=== PATIENT | female | born 1950 | race Caucasian/White ===

== ENCOUNTER 2018-10-21 14:26 | Outpatient (CLI) | payer OTHER ==
[~2018-10-21 14:26] MED LIST: ALBU8.5H8 INH; LEVO500T20 PO; PRED20TA PO
== END 2018-10-21 21:11 | disposition home or self-care (01) ==
LOC: SUS 14:26
PROVIDERS: ATTEND Family Medicine
DX: E04.1 Nontoxic single thyroid nodule (principal)
CPT/HCPCS: 76536-TC

== ENCOUNTER 2018-11-04 08:50 | Outpatient (CLI) | payer OTHER ==
[2018-11-04] MEDS ORDERED: IOHEXOL 100 ML IV ONE (09:35)
== END 2018-11-04 21:31 | disposition home or self-care (01) ==
LOC: SCT 08:50
PROVIDERS: ATTEND Family Medicine
DX: C91.10 Chronic lymphocytic leukemia of B-cell type not having achieved remission (principal)
CPT/HCPCS: 70491; Q9967

== ENCOUNTER 2021-10-22 14:48 | Emergency (ER) | payer OTHER, MEDICARE, SELFPAY ==
[~2021-10-22] VITALS: Ht 157.5 cm; Wt 63.5 kg
[2021-10-22 15:00] VITALS: BP_SYST 142
--- NOTE | 2021-10-22 15:00 | NUR ---
Patient to ER bed 3 to gown for evaluation. Side rails up. Assumed care.
--- NOTE | 2021-10-22 15:00 | NUR ---
pt. bib BLS with flu symptoms X 3 days, concerned because has hx. of leukemia and pneumonia and today began hearing wheezes, audible wheezes on expiration when auscultated lung sounds
--- NOTE | 2021-10-22 15:18 | NUR ---
lab at bedside for blood draw
--- NOTE | 2021-10-22 15:21 | NUR ---
portable chest xray done
--- NOTE | 2021-10-22 15:31 | NUR ---
ER at bedside examining patient.
[2021-10-22 15:40] LABS: BASOPHILS % (AUTO) 0.4 % (0.0-2.0); EOSINOPHILS % (AUTO) 0.7 % (0.0-4.0); HEMATOCRIT 35.6 % (36-48); HEMOGLOBIN 11.9 g/dL (12.0-16.0); LYMPHOCYTES # (AUTO) 1.9 K/uL (1.0-5.5); LYMPHOCYTES % (AUTO) 50.1 % (20.5-51.5); MEAN CORPUSCULAR HEMOGLOBIN 32 pg (27-31); MEAN CORPUSCULAR HGB CONC 34 % (32-36); MEAN CORPUSCULAR VOLUME 95 fL (79.0-98.0); MONOCYTES # (AUTO) 0.2 K/uL (0.0-1.0); MONOCYTES % (AUTO) 5.3 % (1.7-9.3); NEUTROPHILS # (AUTO) 1.7 K/uL (1.8-7.7); NEUTROPHILS % (AUTO) 43.5 % (40.0-70.0); PLATELET COUNT (AUTO) 90 K/uL (130-430); RED BLOOD CELL COUNT(AUTO) 3.75 MIL/uL (4.2-6.2); RED CELL DISTRIBUTION WIDTH 13.7 % (9.0-15.0); WHITE BLOOD COUNT (AUTO) 3.9 K/uL (4.8-10.8)
[2021-10-22 15:47] LABS: ANION GAP 8 (5-15); CALCIUM 8.2 mg/dL (8.4-11.0); CHLORIDE 105 mmol/L (98-107); CREATININE 0.71 mg/dL (0.55-1.30); GLUCOSE 97 mg/dL (70-99); POTASSIUM 4.6 mmol/L (3.5-5.1); SODIUM SERUM 142 mmol/L (136-145); UREA NITROGEN, BLOOD 8 mg/dL (8-21)
[2021-10-22 15:57] LABS: ALANINE AMINOTRANSFERASE 22 U/L (12-78); ALBUMIN 3.6 g/dL (3.4-4.8); ASPARTATE AMINOTRANSFERASE 18 U/L (10-37); TOTAL BILIRUBIN 0.4 mg/dL (0.0-1.0)
[2021-10-22] MEDS ORDERED: NIRM1TAB PO (16:57)
[2021-10-22] MEDS ORDERED: MOLN200C PO (17:18)
--- NOTE | 2021-10-22 18:08 | NUR ---
pt. concerned about going home with positive covid and hx. of pneumonia, requested to talk to Dr. Grimes who is at bedside
--- NOTE | 2021-10-22 18:20 | NUR ---
pt. working on finding a ride to go home, prefers to not have her family pick her up to decrease their exposure to covid
--- NOTE | 2021-10-22 18:41 | NUR ---
Patient given written and verbal discharge instructions and verbalizes understanding. ER Dr. Grimes discussed with patient the results and treatment provided. Patient in stable condition. Rx of molnupiravir given. Patient educated on pain management and to follow up with PMD. Pt. will take motrin and tylenol at home to treat REYES, per pt. Pain Scale 3. Opportunity for questions provided and answered. Medication side effect fact sheet provided.
--- NOTE | 2021-10-22 18:43 | NUR ---
pt. waitting comfortably for taxi, no request at this time
[2021-10-22 19:19] VITALS: BP_SYST 123
== END 2021-10-22 19:19 | disposition home or self-care (01) ==
LOC: SED 14:48
DX: U07.1 COVID-19 (principal); J12.82 Pneumonia due to coronavirus disease 2019; Z79.899 Other long term (current) drug therapy
CPT/HCPCS: 36415; 71045; 80053; 83605; 83880; 84484; 85025; 93005; 99285

== ENCOUNTER 2021-11-02 09:55 | Inpatient (IN) | payer OTHER, MEDICARE, SELFPAY ==
[~2021-11-02] VITALS: Ht 157.5 cm; Wt 63.5 kg
[~2021-11-02 09:55] MED LIST changes: +MOLN200C PO; +NIRM1TAB PO
[2021-11-02 10:00] VITALS: BP_SYST 137
[2021-11-02] MEDS ORDERED: NACL 0.9% 1,000 ML IV ONE ×2 (10:30→11:30)
[2021-11-02 10:31] LABS: BASOPHILS % (AUTO) 0.3 % (0.0-2.0); HEMATOCRIT 33.7 % (36-48); HEMOGLOBIN 11.4 g/dL (12.0-16.0); LYMPHOCYTES # (AUTO) 1.1 K/uL (1.0-5.5); LYMPHOCYTES % (AUTO) 23.7 % (20.5-51.5); MEAN CORPUSCULAR HEMOGLOBIN 32 pg (27-31); MEAN CORPUSCULAR HGB CONC 34 % (32-36); MEAN CORPUSCULAR VOLUME 95 fL (79.0-98.0); MONOCYTES # (AUTO) 0.1 K/uL (0.0-1.0); MONOCYTES % (AUTO) 2.1 % (1.7-9.3); NEUTROPHILS # (AUTO) 3.4 K/uL (1.8-7.7); NEUTROPHILS % (AUTO) 73.9 % (40.0-70.0); PLATELET COUNT (AUTO) 178 K/uL (130-430); RED BLOOD CELL COUNT(AUTO) 3.55 MIL/uL (4.2-6.2); RED CELL DISTRIBUTION WIDTH 13.6 % (9.0-15.0); WHITE BLOOD COUNT (AUTO) 4.6 K/uL (4.8-10.8)
[2021-11-02 11:10] LABS: ANION GAP 12 (5-15); CALCIUM 8.3 mg/dL (8.4-11.0); CHLORIDE 99 mmol/L (98-107); CREATININE 0.98 mg/dL (0.55-1.30); GLUCOSE 192 mg/dL (70-99); POTASSIUM 3.6 mmol/L (3.5-5.1); SODIUM SERUM 137 mmol/L (136-145); UREA NITROGEN, BLOOD 15 mg/dL (8-21)
[2021-11-02 11:18] LABS: ALANINE AMINOTRANSFERASE 46 U/L (12-78); ASPARTATE AMINOTRANSFERASE 36 U/L (10-37); TOTAL BILIRUBIN 0.2 mg/dL (0.0-1.0)
[2021-11-02] MEDS ORDERED: PIPERACILLIN/TAZO 3.375 GM in NS 50 ML IV ONE (11:30)
[2021-11-02] MEDS ORDERED: PIPERACILLIN/TAZOBACTAM 3.375 GM/VIAL (ZOSYN) IV ONE (11:35)
[2021-11-02] MEDS ORDERED: ALBUTEROL MDI INHALATION 8 GM INH INH PRN (13:30)
[2021-11-02] MEDS ORDERED: ASCORBIC ACID 500 MG TABLET PO ONE (14:15)
[2021-11-02] MEDS ORDERED: MULTIVITS,CA,MINERALS/IRON/FA 1 TABLET PO ONE (14:15)
[2021-11-02] MEDS ORDERED: DEXTROSE 50% JECT 50 ML DISP.SYRIN IVP PRN (14:15)
[2021-11-02] MEDS ORDERED: CHOLECALCIFEROL (VITAMIN D3) 2,000 UNIT TABLET PO ONE (14:15)
[2021-11-02] MEDS ORDERED: MAGNESIUM OXIDE 400 MG TABLET PO ONE (14:15)
[2021-11-02] MEDS ORDERED: AZITHROMYCIN 500 MG in D5W 250 ML IV SCH (15:00)
[2021-11-02 15:27] VITALS: BP_SYST 123
[2021-11-02] MEDS: DEXAMETHASONE SOD PHOSPHATE 10 MG/ML VIAL IVP SCH (15:59)
[2021-11-02 16:00] VITALS: BP_SYST 121
[2021-11-02] MEDS ORDERED: BUDESONIDE 0.5 MG/2 ML AMPUL.NEB INH SCH (19:00)
[2021-11-02] MEDS: PIPERACILLIN/TAZO 3.375/DEX-IS 50 ML IV SCH (19:59)
[2021-11-02 20:00] VITALS: BP_SYST 128
[2021-11-02] MEDS ORDERED: MICAFUNGIN SODIUM 100 MG in NS 100 ML IV SCH (20:00)
[2021-11-02] MEDS: MAGNESIUM OXIDE 400 MG TABLET PO SCH (20:59)
[2021-11-02] MEDS: ASCORBIC ACID 500 MG TABLET PO SCH (20:59)
[2021-11-02] MEDS: CHOLECALCIFEROL (VITAMIN D3) 2,000 UNIT TABLET PO SCH (20:59)
[2021-11-02] MEDS: INSULIN REGULAR, HUMAN 100 UNITS/ML, 10 ML VIAL (humuLIN R) SUBCUT PRN (21:02)
[2021-11-02] MEDS ORDERED: FLUCONAZOLE 200 mg/ NS 100 ML IV ONE (22:13)
[2021-11-02] MEDS: FLUCONAZOLE 200 mg/ NS 100 ML IV SCH (22:20)
[2021-11-02] MEDS: ENOXAPARIN SODIUM 40 MG/0.4 ML SYRINGE SUBCUT SCH (22:21)
[2021-11-03] MEDS: PIPERACILLIN/TAZO 3.375/DEX-IS 50 ML IV SCH ×5 (00:05→21:16)
[2021-11-03 00:56] VITALS: BP_SYST 129
[2021-11-03] MEDS ORDERED: BUDESONIDE 0.5 MG/2 ML AMPUL.NEB INH SCH (07:00)
[2021-11-03 08:00] VITALS: BP_SYST 126
[2021-11-03] MEDS: ASCORBIC ACID 500 MG TABLET PO SCH ×2 (08:22→21:15)
[2021-11-03] MEDS: MULTIVITS,CA,MINERALS/IRON/FA 1 TABLET PO SCH (08:22)
[2021-11-03] MEDS: MAGNESIUM OXIDE 400 MG TABLET PO SCH ×2 (08:22→21:15)
[2021-11-03] MEDS: CHOLECALCIFEROL (VITAMIN D3) 2,000 UNIT TABLET PO SCH ×2 (08:22→21:15)
[2021-11-03] MEDS: ENOXAPARIN SODIUM 40 MG/0.4 ML SYRINGE SUBCUT SCH (08:24)
[2021-11-03 11:30] LABS: BASOPHILS % (AUTO) 0.8 % (0.0-2.0); HEMATOCRIT 34.1 % (36-48); HEMOGLOBIN 11.6 g/dL (12.0-16.0); LYMPHOCYTES # (AUTO) 1.2 K/uL (1.0-5.5); LYMPHOCYTES % (AUTO) 23.4 % (20.5-51.5); MEAN CORPUSCULAR HEMOGLOBIN 32 pg (27-31); MEAN CORPUSCULAR HGB CONC 34 % (32-36); MEAN CORPUSCULAR VOLUME 95 fL (79.0-98.0); MONOCYTES # (AUTO) 0.1 K/uL (0.0-1.0); MONOCYTES % (AUTO) 2.4 % (1.7-9.3); NEUTROPHILS # (AUTO) 3.9 K/uL (1.8-7.7); NEUTROPHILS % (AUTO) 73.4 % (40.0-70.0); PLATELET COUNT (AUTO) 164 K/uL (130-430); RED BLOOD CELL COUNT(AUTO) 3.59 MIL/uL (4.2-6.2); RED CELL DISTRIBUTION WIDTH 13.1 % (9.0-15.0); WHITE BLOOD COUNT (AUTO) 5.3 K/uL (4.8-10.8)
[2021-11-03] MEDS: ACETAMINOPHEN 325 MG TABLET PO PRN ×2 (12:02→21:42)
[2021-11-03 12:18] LABS: ALANINE AMINOTRANSFERASE 64 U/L (12-78); ALBUMIN 2.8 g/dL (3.4-4.8); ANION GAP 12 (5-15); ASPARTATE AMINOTRANSFERASE 43 U/L (10-37); CHLORIDE 101 mmol/L (98-107); CREATININE 0.75 mg/dL (0.55-1.30); GLUCOSE 128 mg/dL (70-99); POTASSIUM 3.8 mmol/L (3.5-5.1); SODIUM SERUM 140 mmol/L (136-145); TOTAL BILIRUBIN 0.3 mg/dL (0.0-1.0); UREA NITROGEN, BLOOD 12 mg/dL (8-21)
[2021-11-03 12:20] LABS: C-REACTIVE PROTEIN QUANT 6.4 mg/dL (0-0.5)
[2021-11-03 12:30] VITALS: BP_SYST 109
[2021-11-03] MEDS: DEXAMETHASONE SOD PHOSPHATE 10 MG/ML VIAL IVP SCH (15:00)
[2021-11-03] MEDS ORDERED: FLUCONAZOLE 200 mg/ NS 100 ML IV SCH (15:00)
[2021-11-03 16:00] VITALS: BP_SYST 109
[2021-11-03 20:00] VITALS: BP_SYST 106
[2021-11-03] MEDS: FLUCONAZOLE 200 mg/ NS 100 ML IV SCH (21:16)
[2021-11-04] VITALS: BP_SYST 122
[2021-11-04] MEDS: PIPERACILLIN/TAZO 3.375/DEX-IS 50 ML IV SCH ×3 (06:27→17:47)
[2021-11-04 07:57] VITALS: BP_SYST 110
[2021-11-04 08:06] LABS: BASOPHILS % (AUTO) 0.1 % (0.0-2.0); HEMATOCRIT 33.6 % (36-48); HEMOGLOBIN 11.4 g/dL (12.0-16.0); MEAN CORPUSCULAR HEMOGLOBIN 32 pg (27-31); MEAN CORPUSCULAR HGB CONC 34 % (32-36); MEAN CORPUSCULAR VOLUME 94 fL (79.0-98.0); MONOCYTES # (AUTO) 0.1 K/uL (0.0-1.0); MONOCYTES % (AUTO) 1.6 % (1.7-9.3); NEUTROPHILS # (AUTO) 3.4 K/uL (1.8-7.7); NEUTROPHILS % (AUTO) 76.3 % (40.0-70.0); PLATELET COUNT (AUTO) 159 K/uL (130-430); RED BLOOD CELL COUNT(AUTO) 3.56 MIL/uL (4.2-6.2); RED CELL DISTRIBUTION WIDTH 13.3 % (9.0-15.0); RETICULOCYTE COUNT 0.8 % (0.5-1.5); WHITE BLOOD COUNT (AUTO) 4.5 K/uL (4.8-10.8)
[2021-11-04] MEDS: ASCORBIC ACID 500 MG TABLET PO SCH ×2 (08:44→20:38)
[2021-11-04] MEDS: MAGNESIUM OXIDE 400 MG TABLET PO SCH ×2 (08:44→20:38)
[2021-11-04] MEDS: CHOLECALCIFEROL (VITAMIN D3) 2,000 UNIT TABLET PO SCH ×2 (08:44→20:38)
[2021-11-04] MEDS: MULTIVITS,CA,MINERALS/IRON/FA 1 TABLET PO SCH (08:44)
[2021-11-04] MEDS: ENOXAPARIN SODIUM 40 MG/0.4 ML SYRINGE SUBCUT SCH (08:45)
[2021-11-04 08:46] LABS: ANION GAP 7 (5-15); C-REACTIVE PROTEIN QUANT 13.4 mg/dL (0-0.5); CALCIUM 7.9 mg/dL (8.4-11.0); CHLORIDE 99 mmol/L (98-107); CREATININE 0.74 mg/dL (0.55-1.30); GLUCOSE 113 mg/dL (70-99); LACTATE DEHYDROGENASE 191 U/L (81-234); POTASSIUM 3.8 mmol/L (3.5-5.1); SODIUM SERUM 130 mmol/L (136-145); UREA NITROGEN, BLOOD 10 mg/dL (8-21)
[2021-11-04] MEDS: ALBUTEROL MDI INHALATION 8 GM INH INH SCH (12:00)
[2021-11-04 12:36] LABS: BILIRUBIN,URINE NEGATIVE (NEGATIVE); BLOOD, URINE NEGATIVE (NEGATIVE); CLARITY/URINE CLEAR (CLEAR); COLOR,URINE YELLOW (YELLOW); GLUCOSE,URINE NEGATIVE (NEGATIVE); KETONES,URINE NEGATIVE (NEGATIVE); LEUKOCYTE ESTERASE ,URINE NEGATIVE (NEGATIVE); NITRITE, URINE NEGATIVE (NEGATIVE); PROTEIN URINE NEGATIVE (NEGATIVE); UROBILINOGEN,URINE 0.2 (0.2-1.0)
[2021-11-04 15:12] LABS: IMMUNOGLOBULIN G, SERUM 241 mg/dL (586-1602); IMMUNOGLOBULIN M, SERUM 9 mg/dL (26-217)
[2021-11-04] MEDS: DEXAMETHASONE SOD PHOSPHATE 10 MG/ML VIAL IVP SCH (15:19)
[2021-11-04] MEDS: ACETAMINOPHEN 325 MG TABLET PO PRN (15:20)
[2021-11-04 15:23] VITALS: BP_SYST 129
[2021-11-04] MEDS: FLUCONAZOLE 200 mg/ NS 100 ML IV SCH (20:38)
[2021-11-04] MEDS: INSULIN REGULAR, HUMAN 100 UNITS/ML, 10 ML VIAL (humuLIN R) SUBCUT PRN ×2 (20:40→20:49)
[2021-11-04 20:50] VITALS: BP_SYST 123
[2021-11-05] MEDS: PIPERACILLIN/TAZO 3.375/DEX-IS 50 ML IV SCH ×4 (00:07→17:51)
[2021-11-05 00:13] VITALS: BP_SYST 128
[2021-11-05] MEDS: ALBUTEROL MDI INHALATION 8 GM INH INH SCH ×3 (06:00→18:46)
[2021-11-05 08:01] VITALS: BP_SYST 119
[2021-11-05 09:06] VITALS: BP_SYST 119
[2021-11-05] MEDS: MULTIVITS,CA,MINERALS/IRON/FA 1 TABLET PO SCH (09:17)
[2021-11-05] MEDS: CHOLECALCIFEROL (VITAMIN D3) 2,000 UNIT TABLET PO SCH ×2 (09:17→22:28)
[2021-11-05] MEDS: ASCORBIC ACID 500 MG TABLET PO SCH ×2 (09:17→22:27)
[2021-11-05] MEDS: MAGNESIUM OXIDE 400 MG TABLET PO SCH ×2 (09:17→22:27)
[2021-11-05] MEDS: ENOXAPARIN SODIUM 40 MG/0.4 ML SYRINGE SUBCUT SCH (09:22)
[2021-11-05 11:16] VITALS: BP_SYST 126
[2021-11-05] MEDS: ACETAMINOPHEN 325 MG TABLET PO PRN ×2 (11:21→18:52)
[2021-11-05 12:25] LABS: BASOPHILS % (AUTO) 0.4 % (0.0-2.0); HEMATOCRIT 34.2 % (36-48); HEMOGLOBIN 11.6 g/dL (12.0-16.0); LYMPHOCYTES % (AUTO) 16.5 % (20.5-51.5); MEAN CORPUSCULAR HEMOGLOBIN 32 pg (27-31); MEAN CORPUSCULAR HGB CONC 34 % (32-36); MEAN CORPUSCULAR VOLUME 94 fL (79.0-98.0); MONOCYTES # (AUTO) 0.1 K/uL (0.0-1.0); MONOCYTES % (AUTO) 2.4 % (1.7-9.3); NEUTROPHILS % (AUTO) 80.7 % (40.0-70.0); PLATELET COUNT (AUTO) 202 K/uL (130-430); RED BLOOD CELL COUNT(AUTO) 3.63 MIL/uL (4.2-6.2); WHITE BLOOD COUNT (AUTO) 6.2 K/uL (4.8-10.8)
[2021-11-05 13:04] LABS: ALANINE AMINOTRANSFERASE 86 U/L (12-78); ALBUMIN 2.5 g/dL (3.4-4.8); ANION GAP 8 (5-15); ASPARTATE AMINOTRANSFERASE 41 U/L (10-37); BILIRUBIN,DIRECT 0.1 mg/dL (0.0-0.3); CALCIUM 8.4 mg/dL (8.4-11.0); CHLORIDE 98 mmol/L (98-107); CREATININE 0.83 mg/dL (0.55-1.30); GLUCOSE 173 mg/dL (70-99); POTASSIUM 4.1 mmol/L (3.5-5.1); SODIUM SERUM 133 mmol/L (136-145); TOTAL BILIRUBIN 0.3 mg/dL (0.0-1.0); UREA NITROGEN, BLOOD 13 mg/dL (8-21)
[2021-11-05] MEDS ORDERED: BARICITINIB -Non-Formulary 2 MG TABLET PO ONE (13:30)
[2021-11-05] MEDS: DEXAMETHASONE SOD PHOSPHATE 10 MG/ML VIAL IVP SCH (15:37)
[2021-11-05 16:00] VITALS: BP_SYST 122
[2021-11-05 19:52] VITALS: BP_SYST 126
[2021-11-06] VITALS: BP_SYST 139
[2021-11-06] MEDS: PIPERACILLIN/TAZO 3.375/DEX-IS 50 ML IV SCH ×4 (00:53→18:51)
[2021-11-06] MEDS: FLUCONAZOLE 200 mg/ NS 100 ML IV SCH ×2 (00:53→21:42)
[2021-11-06 06:45] LABS: BASOPHILS % (AUTO) 0.1 % (0.0-2.0); HEMATOCRIT 35.8 % (36-48); HEMOGLOBIN 11.8 g/dL (12.0-16.0); LYMPHOCYTES # (AUTO) 1.4 K/uL (1.0-5.5); LYMPHOCYTES % (AUTO) 29.7 % (20.5-51.5); MEAN CORPUSCULAR HEMOGLOBIN 31 pg (27-31); MEAN CORPUSCULAR HGB CONC 33 % (32-36); MEAN CORPUSCULAR VOLUME 95 fL (79.0-98.0); MONOCYTES # (AUTO) 0.1 K/uL (0.0-1.0); MONOCYTES % (AUTO) 1.3 % (1.7-9.3); NEUTROPHILS # (AUTO) 3.2 K/uL (1.8-7.7); NEUTROPHILS % (AUTO) 68.9 % (40.0-70.0); PLATELET COUNT (AUTO) 227 K/uL (130-430); RED BLOOD CELL COUNT(AUTO) 3.77 MIL/uL (4.2-6.2); RED CELL DISTRIBUTION WIDTH 13.4 % (9.0-15.0); WHITE BLOOD COUNT (AUTO) 4.7 K/uL (4.8-10.8)
[2021-11-06] MEDS ORDERED: IMMUNE GLOBULIN,GAMMA(IGG) 0.5 GM ML IV ONE (07:15)
[2021-11-06] MEDS: ALBUTEROL MDI INHALATION 8 GM INH INH SCH ×4 (07:30→20:03)
[2021-11-06 07:58] LABS: ALANINE AMINOTRANSFERASE 101 U/L (12-78); ALBUMIN 2.5 g/dL (3.4-4.8); ANION GAP 12 (5-15); ASPARTATE AMINOTRANSFERASE 47 U/L (10-37); CALCIUM 8.6 mg/dL (8.4-11.0); CHLORIDE 100 mmol/L (98-107); CREATININE 0.62 mg/dL (0.55-1.30); GLUCOSE 122 mg/dL (70-99); LACTATE DEHYDROGENASE 194 U/L (81-234); POTASSIUM 4.1 mmol/L (3.5-5.1); SODIUM SERUM 139 mmol/L (136-145); TOTAL BILIRUBIN 0.1 mg/dL (0.0-1.0); UREA NITROGEN, BLOOD 12 mg/dL (8-21)
[2021-11-06 08:00] VITALS: BP_SYST 138
[2021-11-06 08:33] LABS: C-REACTIVE PROTEIN QUANT 13.8 mg/dL (0-0.5)
[2021-11-06] MEDS: ENOXAPARIN SODIUM 40 MG/0.4 ML SYRINGE SUBCUT SCH (08:42)
[2021-11-06] MEDS: MAGNESIUM OXIDE 400 MG TABLET PO SCH ×2 (08:43→21:40)
[2021-11-06] MEDS: MULTIVITS,CA,MINERALS/IRON/FA 1 TABLET PO SCH (08:43)
[2021-11-06] MEDS: ASCORBIC ACID 500 MG TABLET PO SCH ×2 (08:43→21:40)
[2021-11-06] MEDS: CHOLECALCIFEROL (VITAMIN D3) 2,000 UNIT TABLET PO SCH ×2 (08:43→21:41)
[2021-11-06] MEDS: BARICITINIB -Non-Formulary 2 MG TABLET PO SCH (08:44)
[2021-11-06] MEDS ORDERED: DIPHENHYDRAMINE INJ 50 MG/ML VIAL IVP ONE (09:15)
[2021-11-06 12:36] VITALS: BP_SYST 135
[2021-11-06] MEDS: DEXAMETHASONE SOD PHOSPHATE 10 MG/ML VIAL IVP SCH (14:26)
[2021-11-06 16:00] VITALS: BP_SYST 136
[2021-11-06 21:00] VITALS: BP_SYST 135
[2021-11-07] MEDS: ALBUTEROL MDI INHALATION 8 GM INH INH SCH ×4 (00:34→17:29)
[2021-11-07 00:40] VITALS: BP_SYST 133
[2021-11-07] MEDS: PIPERACILLIN/TAZO 3.375/DEX-IS 50 ML IV SCH ×4 (00:49→18:24)
[2021-11-07 07:42] LABS: BASOPHILS % (AUTO) 0.1 % (0.0-2.0); HEMATOCRIT 34.6 % (36-48); HEMOGLOBIN 11.7 g/dL (12.0-16.0); LYMPHOCYTES # (AUTO) 1.5 K/uL (1.0-5.5); LYMPHOCYTES % (AUTO) 35.6 % (20.5-51.5); MEAN CORPUSCULAR HEMOGLOBIN 32 pg (27-31); MEAN CORPUSCULAR HGB CONC 34 % (32-36); MEAN CORPUSCULAR VOLUME 95 fL (79.0-98.0); MONOCYTES # (AUTO) 0.2 K/uL (0.0-1.0); MONOCYTES % (AUTO) 4.2 % (1.7-9.3); NEUTROPHILS # (AUTO) 2.5 K/uL (1.8-7.7); NEUTROPHILS % (AUTO) 60.1 % (40.0-70.0); PLATELET COUNT (AUTO) 244 K/uL (130-430); RED BLOOD CELL COUNT(AUTO) 3.66 MIL/uL (4.2-6.2); RED CELL DISTRIBUTION WIDTH 13.1 % (9.0-15.0); WHITE BLOOD COUNT (AUTO) 4.1 K/uL (4.8-10.8)
[2021-11-07 07:52] LABS: ALANINE AMINOTRANSFERASE 98 U/L (12-78); ALBUMIN 2.4 g/dL (3.4-4.8); ANION GAP 11 (5-15); ASPARTATE AMINOTRANSFERASE 37 U/L (10-37); CALCIUM 9.1 mg/dL (8.4-11.0); CHLORIDE 99 mmol/L (98-107); GLUCOSE 127 mg/dL (70-99); POTASSIUM 4.4 mmol/L (3.5-5.1); SODIUM SERUM 138 mmol/L (136-145); UREA NITROGEN, BLOOD 19 mg/dL (8-21)
[2021-11-07 08:00] VITALS: BP_SYST 129
[2021-11-07 08:06] LABS: TOTAL BILIRUBIN 0.2 mg/dL (0.0-1.0)
[2021-11-07] MEDS: MAGNESIUM OXIDE 400 MG TABLET PO SCH ×2 (09:34→20:44)
[2021-11-07] MEDS: CHOLECALCIFEROL (VITAMIN D3) 2,000 UNIT TABLET PO SCH ×2 (09:34→20:44)
[2021-11-07] MEDS: MULTIVITS,CA,MINERALS/IRON/FA 1 TABLET PO SCH (09:34)
[2021-11-07] MEDS: ASCORBIC ACID 500 MG TABLET PO SCH ×2 (09:34→20:45)
[2021-11-07] MEDS: BARICITINIB -Non-Formulary 2 MG TABLET PO SCH (09:35)
[2021-11-07] MEDS: ENOXAPARIN SODIUM 40 MG/0.4 ML SYRINGE SUBCUT SCH (09:39)
[2021-11-07 11:13] VITALS: BP_SYST 123
[2021-11-07] MEDS: DEXAMETHASONE SOD PHOSPHATE 10 MG/ML VIAL IVP SCH (15:58)
[2021-11-07 16:42] VITALS: BP_SYST 121
[2021-11-07 20:00] VITALS: BP_SYST 122
[2021-11-07] MEDS: FLUCONAZOLE 200 mg/ NS 100 ML IV SCH (20:45)
[2021-11-08] MEDS: PIPERACILLIN/TAZO 3.375/DEX-IS 50 ML IV SCH ×4 (00:13→17:01)
[2021-11-08] MEDS: ALBUTEROL MDI INHALATION 8 GM INH INH SCH ×4 (00:43→20:41)
[2021-11-08 01:00] VITALS: BP_SYST 125
[2021-11-08 08:00] VITALS: BP_SYST 115
[2021-11-08] MEDS: CHOLECALCIFEROL (VITAMIN D3) 2,000 UNIT TABLET PO SCH ×2 (08:38→21:44)
[2021-11-08] MEDS: ASCORBIC ACID 500 MG TABLET PO SCH ×2 (08:38→21:44)
[2021-11-08] MEDS: BARICITINIB -Non-Formulary 2 MG TABLET PO SCH (08:39)
[2021-11-08] MEDS: MULTIVITS,CA,MINERALS/IRON/FA 1 TABLET PO SCH (08:39)
[2021-11-08] MEDS: MAGNESIUM OXIDE 400 MG TABLET PO SCH ×2 (08:39→21:44)
[2021-11-08] MEDS: ENOXAPARIN SODIUM 40 MG/0.4 ML SYRINGE SUBCUT SCH (08:42)
[2021-11-08 12:49] VITALS: BP_SYST 120
[2021-11-08 16:00] VITALS: BP_SYST 117
[2021-11-08] MEDS: DEXAMETHASONE SOD PHOSPHATE 10 MG/ML VIAL IVP SCH (16:54)
[2021-11-08] MEDS: FLUCONAZOLE 200 mg/ NS 100 ML IV SCH (21:46)
[2021-11-09] MEDS: ALBUTEROL MDI INHALATION 8 GM INH INH SCH ×3 (01:49→13:48)
[2021-11-09 01:50] VITALS: BP_SYST 139
[2021-11-09 05:31] VITALS: BP_SYST 118
[2021-11-09 07:00] LABS: HEMATOCRIT 36.5 % (36-48); HEMOGLOBIN 12.3 g/dL (12.0-16.0); LYMPHOCYTES # (AUTO) 1.9 K/uL (1.0-5.5); LYMPHOCYTES % (AUTO) 38.8 % (20.5-51.5); MEAN CORPUSCULAR HEMOGLOBIN 32 pg (27-31); MEAN CORPUSCULAR HGB CONC 34 % (32-36); MEAN CORPUSCULAR VOLUME 94 fL (79.0-98.0); MONOCYTES # (AUTO) 0.1 K/uL (0.0-1.0); MONOCYTES % (AUTO) 1.3 % (1.7-9.3); NEUTROPHILS % (AUTO) 59.9 % (40.0-70.0); PLATELET COUNT (AUTO) 246 K/uL (130-430); RED BLOOD CELL COUNT(AUTO) 3.87 MIL/uL (4.2-6.2); RED CELL DISTRIBUTION WIDTH 13.2 % (9.0-15.0)
[2021-11-09] MEDS ORDERED: PIPERACILLIN/TAZO 3.375/DEX-IS 50 ML IV ONE (07:00)
[2021-11-09 07:13] LABS: ALANINE AMINOTRANSFERASE 78 U/L (12-78); ALBUMIN 2.5 g/dL (3.4-4.8); ANION GAP 10 (5-15); ASPARTATE AMINOTRANSFERASE 21 U/L (10-37); CALCIUM 8.8 mg/dL (8.4-11.0); CHLORIDE 99 mmol/L (98-107); CREATININE 0.76 mg/dL (0.55-1.30); GLUCOSE 117 mg/dL (70-99); SODIUM SERUM 136 mmol/L (136-145); TOTAL BILIRUBIN 0.1 mg/dL (0.0-1.0); UREA NITROGEN, BLOOD 18 mg/dL (8-21)
[2021-11-09 08:00] VITALS: BP_SYST 122
[2021-11-09 08:13] LABS: C-REACTIVE PROTEIN QUANT 1.3 mg/dL (0-0.5)
[2021-11-09] MEDS: CHOLECALCIFEROL (VITAMIN D3) 2,000 UNIT TABLET PO SCH ×2 (09:00→21:17)
[2021-11-09] MEDS: ENOXAPARIN SODIUM 40 MG/0.4 ML SYRINGE SUBCUT SCH (09:00)
[2021-11-09] MEDS: MAGNESIUM OXIDE 400 MG TABLET PO SCH ×2 (09:00→21:17)
[2021-11-09] MEDS: MULTIVITS,CA,MINERALS/IRON/FA 1 TABLET PO SCH (09:00)
[2021-11-09] MEDS: BARICITINIB -Non-Formulary 2 MG TABLET PO SCH (09:00)
[2021-11-09] MEDS: ASCORBIC ACID 500 MG TABLET PO SCH ×2 (09:00→21:17)
[2021-11-09 11:26] VITALS: BP_SYST 136
[2021-11-09] MEDS: PIPERACILLIN/TAZO 3.375/DEX-IS 50 ML IV SCH ×3 (12:30→19:04)
[2021-11-09 16:50] VITALS: BP_SYST 132
[2021-11-09] MEDS: DEXAMETHASONE SOD PHOSPHATE 10 MG/ML VIAL IVP SCH (17:00)
[2021-11-09] MEDS: FLUCONAZOLE 200 mg/ NS 100 ML IV SCH (23:07)
[2021-11-10] MEDS: PIPERACILLIN/TAZO 3.375/DEX-IS 50 ML IV SCH ×4 (00:33→18:13)
[2021-11-10 01:30] VITALS: BP_SYST 113
[2021-11-10 07:10] LABS: BASOPHILS % (AUTO) 0.3 % (0.0-2.0); HEMATOCRIT 35.8 % (36-48); HEMOGLOBIN 12.2 g/dL (12.0-16.0); LYMPHOCYTES # (AUTO) 2.3 K/uL (1.0-5.5); LYMPHOCYTES % (AUTO) 42.2 % (20.5-51.5); MEAN CORPUSCULAR HEMOGLOBIN 32 pg (27-31); MEAN CORPUSCULAR HGB CONC 34 % (32-36); MEAN CORPUSCULAR VOLUME 93 fL (79.0-98.0); MONOCYTES # (AUTO) 0.1 K/uL (0.0-1.0); MONOCYTES % (AUTO) 2.5 % (1.7-9.3); PLATELET COUNT (AUTO) 229 K/uL (130-430); RED BLOOD CELL COUNT(AUTO) 3.83 MIL/uL (4.2-6.2); RED CELL DISTRIBUTION WIDTH 13.2 % (9.0-15.0); WHITE BLOOD COUNT (AUTO) 5.5 K/uL (4.8-10.8)
[2021-11-10] MEDS: ALBUTEROL MDI INHALATION 8 GM INH INH SCH ×3 (07:30→18:57)
[2021-11-10 07:47] LABS: ALANINE AMINOTRANSFERASE 62 U/L (12-78); ALBUMIN 2.5 g/dL (3.4-4.8); ANION GAP 8 (5-15); ASPARTATE AMINOTRANSFERASE 19 U/L (10-37); CALCIUM 8.8 mg/dL (8.4-11.0); CHLORIDE 100 mmol/L (98-107); CREATININE 0.79 mg/dL (0.55-1.30); GLUCOSE 120 mg/dL (70-99); POTASSIUM 4.7 mmol/L (3.5-5.1); SODIUM SERUM 135 mmol/L (136-145); TOTAL BILIRUBIN 0.2 mg/dL (0.0-1.0); UREA NITROGEN, BLOOD 21 mg/dL (8-21)
[2021-11-10] MEDS: ENOXAPARIN SODIUM 40 MG/0.4 ML SYRINGE SUBCUT SCH (09:37)
[2021-11-10] MEDS: ASCORBIC ACID 500 MG TABLET PO SCH ×2 (09:38→21:56)
[2021-11-10] MEDS: CHOLECALCIFEROL (VITAMIN D3) 2,000 UNIT TABLET PO SCH ×2 (09:38→21:56)
[2021-11-10] MEDS: MAGNESIUM OXIDE 400 MG TABLET PO SCH ×2 (09:38→21:56)
[2021-11-10] MEDS: MULTIVITS,CA,MINERALS/IRON/FA 1 TABLET PO SCH (09:38)
[2021-11-10] MEDS: BARICITINIB -Non-Formulary 2 MG TABLET PO SCH (09:52)
[2021-11-10 09:56] VITALS: BP_SYST 138
[2021-11-10 12:20] VITALS: BP_SYST 132
[2021-11-10] MEDS ORDERED: ASC500 PO (15:08)
[2021-11-10] MEDS ORDERED: DOXY100C PO (15:08)
[2021-11-10] MEDS ORDERED: DEC1 PO (15:08)
[2021-11-10] MEDS ORDERED: VITD2000 PO (15:08)
[2021-11-10] MEDS ORDERED: Zinc Sulfate PO (15:11)
[2021-11-10] MEDS ORDERED: MAGN400T10 PO (15:11)
[2021-11-10 16:30] VITALS: BP_SYST 130
[2021-11-10] MEDS ORDERED: DECADRON 4 MG TABLET PO SCH (18:00)
[2021-11-10 20:00] VITALS: BP_SYST 96
[2021-11-10] MEDS: FLUCONAZOLE 200 mg/ NS 100 ML IV SCH (22:52)
[2021-11-11] VITALS: BP_SYST 104
[2021-11-11] MEDS: ALBUTEROL MDI INHALATION 8 GM INH INH SCH ×3 (00:32→12:22)
[2021-11-11] MEDS: PIPERACILLIN/TAZO 3.375/DEX-IS 50 ML IV SCH ×2 (00:48→07:20)
[2021-11-11 08:00] VITALS: BP_SYST 101
[2021-11-11 08:10] VITALS: BP_SYST 101
[2021-11-11] MEDS: MAGNESIUM OXIDE 400 MG TABLET PO SCH (09:01)
[2021-11-11] MEDS: MULTIVITS,CA,MINERALS/IRON/FA 1 TABLET PO SCH (09:01)
[2021-11-11] MEDS: ASCORBIC ACID 500 MG TABLET PO SCH (09:01)
[2021-11-11] MEDS: CHOLECALCIFEROL (VITAMIN D3) 2,000 UNIT TABLET PO SCH (09:01)
[2021-11-11] MEDS: BARICITINIB -Non-Formulary 2 MG TABLET PO SCH (09:02)
[2021-11-11] MEDS: ENOXAPARIN SODIUM 40 MG/0.4 ML SYRINGE SUBCUT SCH (09:02)
[2021-11-11 12:00] VITALS: BP_SYST 105
[2021-11-11 14:08] VITALS: BP_SYST 101
== END 2021-11-11 16:00 | disposition home or self-care (01) | DRG 871 ==
LOC: SED 09:55 → SMU 12:41
PROVIDERS: ADMIT Internal Medicine; ATTEND Internal Medicine
PROC: 05HY33Z Insertion of Infusion Device into Upper Vein, Percutaneous Approach (ICD-10-PCS; 2021-11-05)
PROC: XW033E5 Introduction of Remdesivir Anti-infective into Peripheral Vein, Percutaneous Approach, New Technology Group 5 (ICD-10-PCS; principal; 2021-11-09)
DX: A41.9 Sepsis, unspecified organism (principal); U07.1 COVID-19; J12.82 Pneumonia due to coronavirus disease 2019; J15.9 Unspecified bacterial pneumonia; J96.01 Acute respiratory failure with hypoxia; C91.11 Chronic lymphocytic leukemia of B-cell type in remission; E44.1 Mild protein-calorie malnutrition; D80.1 Nonfamilial hypogammaglobulinemia; F41.9 Anxiety disorder, unspecified; R73.9 Hyperglycemia, unspecified; D63.8 Anemia in other chronic diseases classified elsewhere; T38.0X5A Adverse effect of glucocorticoids and synthetic analogues, initial encounter; Z79.899 Other long term (current) drug therapy; Z79.2 Long term (current) use of antibiotics; Z68.25 Body mass index [BMI] 25.0-25.9, adult; Y92.89 Other specified places as the place of occurrence of the external cause
CPT/HCPCS: 36415; 71045; 71250-TC; 76376; 80048; 80053; 80076; 81003; 82728; 82784; 82962; 83036; 83605; 83615; 83880; 84484; 85025; 85044; 85379; 86140; 87040; 94010; 94640; 94664; 94760; 96361; 96365; 97163-GP; 99285; J0456; J1100; J1200; J1450; J1572; J1650; J1815; J2248; J2543; J7050; J7060; J7626; J8540